=== PATIENT | female | born 1995 | race Caucasian/White ===

== ENCOUNTER 2020-06-29 17:23 | Emergency (ER) | payer OTHER ==
[~2020-06-29] VITALS: Ht 157.5 cm; Wt 126.1 kg
[2020-06-29 18:26] LABS: URINE BILIRUBIN NEGATIVE (Negative); URINE BLOOD NEGATIVE (Negative); URINE CLARITY CLEAR; URINE COLOR YELLOW; URINE GLUCOSE-RANDOM NEGATIVE (Negative); URINE KETONES NEGATIVE (Negative); URINE LEUKOCYTES-REFLEX NEGATIVE (Negative); URINE NITRITE-REFLEX NEGATIVE (Negative); URINE PROTEIN NEGATIVE (Negative); URINE SPECIFIC GRAVITY 1.015 (1.005-1.030); URINE UROBILINOGEN 0.2 E.U./dl (0.2-1.0)
[2020-06-29 18:40] LABS: ABSOLUTE BASOPHILS 0.1 thou/uL (0.0-0.2); ABSOLUTE EOSINOPHILS 0.3 thou/uL (0.0-0.7); ABSOLUTE LYMPHOCYTES 1.8 thou/uL (0.8-5.3); ABSOLUTE MONOCYTES 0.8 thou/uL (0.0-1.2); ABSOLUTE NEUTROPHILS 7.4 thou/uL (1.6-8.1); EOSINOPHILS 2.5 %; HEMATOCRIT 32.9 % (37.0-47.0); HEMOGLOBIN 10.6 gm/dL (12.0-15.0); LYMPHOCYTES 17.3 %; MCH 24.5 pg (26.0-34.0); MCHC 32.2 g/dL (28.0-37.0); MCV 76.3 fL (80.0-100.0); MONOCYTES 7.5 %; MPV 7.6 fl. (7.2-11.1); NUCLEATED RBCS 0 /100WBC; PLATELET COUNT* 313 thou/uL (150-400); POLYS 71.7 %; RBC 4.31 mil/uL (4.20-5.00); RDW-CV 17.1 % (10.5-14.5); WBC 10.4 thou/uL (4.0-11.0)
[2020-06-29 18:50] LABS: CALCIUM 8.8 mg/dL (8.5-10.1); CREATININE 0.8 mg/dL (0.6-1.3)
[2020-06-29 18:52] LABS: APTT 23.3 Seconds (25.0-31.3); PROTIME 10.3 Seconds (9.20-11.50)
[2020-06-29 18:54] LABS: ALBUMIN 3.5 g/dL (3.4-5.0); TOTAL BILIRUBIN 0.2 mg/dL (<0.1-1.0); TOTAL PROTEIN 7.5 g/dL (6.4-8.2)
[2020-06-29] MEDS ORDERED: OMEPRAZOLE40 MG PO (20:13)
[2020-06-29] MEDS ORDERED: CARAFATE 1 GM TA1 GM PO (20:13)
[2020-06-29 20:21] VITALS: BP 138/77
== END 2020-06-29 20:21 | disposition home or self-care (01) ==
LOC: M.ERS 17:23
PROVIDERS: Nurse Practitioner Family
DX: K27.9 Peptic ulcer, site unspecified, unspecified as acute or chronic, without hemorrhage or perforation (principal)

== ENCOUNTER 2020-07-01 08:42 | Emergency (ER) | payer OTHER ==
[~2020-07-01] VITALS: Ht 157.5 cm; Wt 122.5 kg
[~2020-07-01 08:42] MED LIST: CARAFATE 1 GM TA1 GM PO; OMEPRAZOLE40 MG PO
[2020-07-01 09:16] LABS: ABSOLUTE EOSINOPHILS 0.3 thou/uL (0.0-0.7); ABSOLUTE LYMPHOCYTES 1.6 thou/uL (0.8-5.3); ABSOLUTE MONOCYTES 1.3 thou/uL (0.0-1.2); ABSOLUTE NEUTROPHILS 10.7 thou/uL (1.6-8.1); BASOPHILS 0.2 %; EOSINOPHILS 2.1 %; HEMATOCRIT 31.2 % (37.0-47.0); HEMOGLOBIN 9.7 gm/dL (12.0-15.0); LYMPHOCYTES 11.4 %; MCH 23.7 pg (26.0-34.0); MCHC 31.1 g/dL (28.0-37.0); MCV 76.3 fL (80.0-100.0); MONOCYTES 9.1 %; MPV 7.1 fl. (7.2-11.1); NUCLEATED RBCS 0 /100WBC; PLATELET COUNT* 285 thou/uL (150-400); POLYS 77.2 %; RBC 4.08 mil/uL (4.20-5.00); RDW-CV 17.3 % (10.5-14.5); WBC 13.8 thou/uL (4.0-11.0)
[2020-07-01 09:23] LABS: CALCIUM 8.7 mg/dL (8.5-10.1); CREATININE 0.7 mg/dL (0.6-1.3); POTASSIUM 4.2 mmol/L (3.5-5.1)
[2020-07-01 09:27] LABS: ALBUMIN 3.3 g/dL (3.4-5.0); TOTAL BILIRUBIN 0.6 mg/dL (<0.1-1.0); TOTAL PROTEIN 7.4 g/dL (6.4-8.2)
[2020-07-01] MEDS ORDERED: VENTOLIN HFA 1818 GM INH (09:42)
[2020-07-01] MEDS ORDERED: HYDROCODON-ACE1 EAC7 PO (09:42)
[2020-07-01] MEDS ORDERED: ZPAK PO (09:42)
[2020-07-01] MEDS ORDERED: LEVAQUIN 500 M500 MG PO (09:42)
[2020-07-01 10:40] VITALS: BP 130/72
== END 2020-07-01 10:43 | disposition home or self-care (01) ==
LOC: M.ERS 08:42
PROVIDERS: Family Medicine
DX: J18.9 Pneumonia, unspecified organism (principal); Z20.828 Contact with and (suspected) exposure to other viral communicable diseases; M54.6 Pain in thoracic spine; Z79.899 Other long term (current) drug therapy